=== PATIENT | male | born 1950 | race Hispanic/Latino ===

== ENCOUNTER 2018-12-29 11:14 | Emergency (ER) | payer OTHER ==
[2018-12-29] MEDS ORDERED: LIDOCAINE HCL 1% 20 ML VIAL ONE (12:40)
== END 2018-12-29 13:40 | disposition home or self-care (01) ==
LOC: EDH 11:14
DX: S01.01XA Laceration without foreign body of scalp, initial encounter (principal); E11.9 Type 2 diabetes mellitus without complications; E78.00 Pure hypercholesterolemia, unspecified; Z91.041 Radiographic dye allergy status; W22.8XXA Striking against or struck by other objects, initial encounter; Y93.89 Activity, other specified; Y92.89 Other specified places as the place of occurrence of the external cause; Y99.8 Other external cause status
CPT/HCPCS: 12035; 70450; 72125; 93005

== ENCOUNTER 2019-01-08 10:02 | Emergency (ER) | payer OTHER | END 2019-01-08 10:30 | disposition home or self-care (01) | LOC: EDH 10:02 | DX: S01.01XD Laceration without foreign body of scalp, subsequent encounter (principal); E78.00 Pure hypercholesterolemia, unspecified; E11.9 Type 2 diabetes mellitus without complications; Z87.891 Personal history of nicotine dependence; X58.XXXD Exposure to other specified factors, subsequent encounter | CPT/HCPCS: 99281 ==